=== PATIENT | female | born 1980 | race American Indian/Alaskan Native ===

== ENCOUNTER 2020-06-23 10:55 | Day surgery (SDC) | payer BC, MEDICAID ==
[2020-06-09 10:29] LABS: Hematocrit 34.2 % (30.3-42.9); Hemoglobin 11.9 gm/dl (10.1-14.3); Mean Corpuscular HGB Conc 35 % (30-34); Mean Corpuscular Volume 81 fl (79-97); Platelet Count 196 K/mm3 (140-440); Red Blood Count 4.21 M/mm3 (3.65-5.03); Red Cell Distribution Width 16.1 % (13.2-15.2)
[2020-06-09 10:52] LABS: Blood Urea Nitrogen 6 mg/dL (7-17); Calcium 9.3 mg/dL (8.4-10.2); Hemolysis Index 19
[2020-06-09 10:55] LABS: BUN/Creatinine Ratio 10
[~2020-06-23 10:55] MED LIST: ACETAMINOPHEN 500 MG TAB PO SCH; CELECOXIB 200 MG CAP PO NR; GABAPENTIN 300 MG CAP PO NR; LACTATED RINGERS 1,000 ML IV SCH; MIDAZOLAM 2 MG/2 ML INJ IV NR; SCOPOLAMINE TRANSDERMAL PATCH 72 HR TD NR; fentaNYL 100 MCG/2 ML INJ IV PRN
[2020-06-23] MEDS ORDERED: BUPIVACAINE-EPINEPHRINE/PF 0.25%-1:200,000 (30 ML) VIAL INFILTRATI ONE (11:33)
[2020-06-23] MEDS ORDERED: dexAMETHasone 4 MG/ML VIAL ONE (11:33)
[2020-06-23] MEDS ORDERED: HYDROmorphone 1 MG/1 ML INJ IV PRN (11:36)
--- NOTE | 2020-06-23 11:38 | Anesthesia Consultation ---
Anesthesia Consult and Med Hx Date of service: 06/23/20 - Airway Anesthetic Teeth Evaluation: Good, Crowns ROM Head & Neck: Adequate Mental/Hyoid Distance: Adequate Mallampati Class: Class III Intubation Access Assessment: Possibly Difficult - Pulmonary Exam CTA: Yes - Cardiac Exam Cardiac Exam: RRR - Pre-Operative Health Status ASA Pre-Surgery Classification: ASA2 Proposed Anesthetic Plan: General Nerve Block: TAP - Pulmonary Hx Smoking: No Hx Respiratory Symptoms: No (prev COVID+; asymptomatic. Recent neg test on chart.) Hx Sleep Apnea: No - Cardiovascular System Hx Hypertension: Yes Hx Heart Attack/AMI: No Hx Percutaneous Transluminal Coronary Angioplasty (PTCA): No Hx Cardia Arrhythmia: No - Central Nervous System CVA: No - Gastrointestinal Hx Gastroesophageal Reflux Disease: Yes (controlled) - Endocrine Hx Renal Disease: No Hx Cirrhosis: No Hx Liver Disease: No Hx Insulin Dependent Diabetes: No Hx Non-Insulin Dependent Diabetes: No Hx Thyroid Disease: No - Hematic Hx Anemia: Yes (no hx transfusions) - Other Systems Hx Obesity: Yes (BMI 36) - Additional Comments Anesthesia Medical History Comments: No hx anesthetic complications.
--- NOTE | 2020-06-23 11:38 | Anesthesia Day of Surgery ---
Anesthesia Day of Surgery - Day of Surgery Patient Examined: Yes Patient H&P Reviewed: Yes Patient is NPO: Yes
[2020-06-23] MEDS ORDERED: ceFAZolin/STERILE WATER 2 GM/20 ML SYRINGE IV NR (12:00)
[2020-06-23] MEDS ORDERED: propofoL 200 MG/20 ML VIAL IV ONE (12:33)
[2020-06-23] MEDS ORDERED: dexAMETHasone 20 MG/5 ML VIAL ONE (12:33)
[2020-06-23] MEDS ORDERED: LIDOCAINE MPF (2%) 20 MG/1 ML VIAL 5 ML ONE (12:33)
[2020-06-23] MEDS ORDERED: ONDANSETRON 4 MG/2 ML INJ ONE (12:33)
[2020-06-23] MEDS ORDERED: ROCURONIUM 50 MG/5 ML INJ IV ONE (12:33)
[2020-06-23] MEDS ORDERED: HYDROmorphone 1 MG/1 ML INJ ONE (12:33)
[2020-06-23] MEDS ORDERED: NEOSTIGMINE 10MG/10 ML INJ MDV ONE (15:25)
[2020-06-23] MEDS ORDERED: GLYCOPYRROLATE 0.4 MG/2 ML INJ ONE (15:25)
--- NOTE | 2020-06-23 15:33 | Post Operative Note ---
Pre-op diagnosis: incarcerated umbilical hernia Post-op diagnosis: same Findings: 1.5 cm umbilical hernia containing incarcerated preperitoneal fat Procedure: robotic assisted laparoscopic umbilical hernia repair with mesh Anesthesia: GETA, regional (NINA block) Surgeon: AMBER RODRIGUEZ (Nick Hilario, [employer]MER - assist) Estimated blood loss: minimal Pathology: none Condition: stable Disposition: PACU
--- NOTE | 2020-06-23 15:37 | Short Stay Summary ---
Short Stay Documentation Date of service: 06/23/20 - History Principal diagnosis: incarcerated umbilical hernia H&P: obtained from office - Allergies and Medications Current Medications: Allergies oxycodone Adverse Reaction (Intermediate, Verified 06/08/20 12:21) Hives Home Medications Medication Instructions Recorded Confirmed Last Taken Type Ascorbic Acid [Vitamin C] 1,000 mg PO DAILY 06/08/20 06/08/20 06/21/20 History Hydrochlorothiazide 12.5 mg PO DAILY 06/08/20 06/23/20 06/22/20 History Iron Fum,Ps/Folic/Bcomp,C No.9 1 cap PO DAILY 06/08/20 06/08/20 06/21/20 History [Integra Plus Capsule] Potassium Citrate [Potassium 15 meq PO BID 06/08/20 06/08/20 06/21/20 History Citrate ER] Tamsulosin 0.4 mg PO DAILY 06/08/20 06/08/20 06/21/20 History Active Medications Acetaminophen (Tylenol) 1,000 mg PO PREOP EVENS Stop: 06/23/20 22:00 Last Admin: 06/23/20 11:53 Dose: 1,000 mg Documented by: Cefazolin Sodium (Ancef/Sterile Water 2 Gm/20 Ml) 2 gm IV PREOP NR Stop: 06/23/20 20:00 Celecoxib (Celebrex) 200 mg PO PREOP NR Stop: 06/23/20 22:00 Last Admin: 06/23/20 11:53 Dose: 200 mg Documented by: Fentanyl (Sublimaze) 100 mcg IV ONCE PRN PRN Reason: sedation for nerve block Stop: 06/23/20 22:00 Last Admin: 06/23/20 12:22 Dose: 50 mcg Documented by: Gabapentin (Gabapentin) 600 mg PO PREOP NR Stop: 06/23/20 22:00 Last Admin: 06/23/20 11:53 Dose: 600 mg Documented by: Hydromorphone HCl (Dilaudid) 0.5 mg IV Q10MIN PRN PRN Reason: Pain , Severe (7-10) Stop: 06/23/20 22:00 Lactated Ringer's (Lactated Ringers) 1,000 mls @ 100 mls/hr IV DIRECT EVENS Stop: 06/23/20 23:59 Last Admin: 09/29/20 12:05 Dose: 100 mls/hr Documented by: Midazolam HCl (Versed) 2 mg IV PREOP NR Stop: 06/23/20 22:00 Last Admin: 06/23/20 12:22 Dose: 2 mg Documented by: Scopolamine (Transderm-Scop) 1 each TD PREOP NR Stop: 06/23/20 22:00 Last Admin: 06/23/20 11:54 Dose: 1 each Documented by: - Hospital course Hospital course: Pt observed in PACu and discharged to home in stable condition - Disposition Condition at discharge: Poor Disposition: DC-01 TO HOME OR SELFCARE Short Stay Discharge Plan Activity: other (no heavy lifting of more than 15 lbs) Diet: regular Wound: open to air, other (may remove umbilical dressing in 2 days and then shower. ) Additional Instructions: see printed dc instructions Follow up with: EDGAR SANDOVAL [Other] - 7 Days AMBER RODRIGUEZ DO [Staff Physician] - 14 Days Forms: Outpatient Surgery DC Inst. Prescriptions: Celecoxib [celeBREX] 200 mg PO BID #10 capsule Gabapentin 300 mg PO TID #15 capsule HYDROcodone/APAP 5-325 [[place] 5/325] 1 each PO Q6HR PRN #20 tablet PRN Reason: Pain , Severe (7-10)
[2020-06-23] MEDS ORDERED: LACTATED RINGERS 1,000 ML ONE (15:45)
[2020-06-23 17:13] VITALS: BP 131/79
--- NOTE | 2020-06-29 10:17 | Operative Report ---
PREOPERATIVE DIAGNOSIS: Incarcerated umbilical hernia. POSTOPERATIVE DIAGNOSIS: Incarcerated umbilical hernia. FINDINGS: 1.5 cm umbilical hernia containing incarcerated preperitoneal fat. PROCEDURE: Robotic-assisted laparoscopic umbilical hernia repair with mesh. ANESTHESIA: General endotracheal anesthesia, TAP block. SURGEON: Lali Sanford DO PUTAWAY DRIVER: LARISA Tavarez ESTIMATED BLOOD LOSS: Minimal. PATHOLOGY: None. CONDITION ON DISPOSITION: The patient is stable to PACU. HISTORY OF PRESENT ILLNESS: The patient is a 39-year-old female who presented to the surgery clinic for evaluation of an umbilical hernia. The hernia was not reducible due to pain and contained fat. The patient had no obstructive symptoms. It was recommended that the hernia be repaired. All risks, benefits and alternatives to surgery were discussed with the patient. Questions answered. Consent was obtained for a robotic-assisted umbilical hernia repair with mesh. PROCEDURE IN DETAIL: The patient was identified in the preoperative area and taken back to the operating room and placed on the operating table in supine position. After anesthesia was induced, both arms were tucked and all bony prominences were padded appropriately. The abdomen was prepped and draped in the usual sterile fashion. A timeout performed. A yuridia incision was made in the left upper quadrant through which a Veress needle was inserted. The Veress needle position was confirmed using saline drop test and the abdomen insufflated to 15 mmHg. A 5 mm right upper quadrant incision was then made through which a 5 mm Optiview trocar was placed under direct visualization. The abdomen was inspected. There was no underlying injury to any of the abdominal structures. The Veress needle path and tip was seen and the Veress needle was removed. An additional 12 mm right lateral abdominal trocar and a right lower quadrant 8 mm robotic trocar were then placed under direct visualization. The 5 mm right upper quadrant trocar was removed and replaced with an 8 mm robotic trocar under direct visualization. The robot was then docked with a monopolar scissor in arm #1 and a fenestrated bipolar in arm #2. Surgeon was then transferred to the console. The umbilical hernia was identified. The decision was made to make a preperitoneal flap in order to adequately reduce the preperitoneal fat incarcerated in the hernia. The peritoneum was scored and a preperitoneal flap was started approximately 3-4 cm from the hernia defect. This was dissected in an avascular plane on either side of the hernia sac. The hernia sac was then carefully reduced along with a small amount of incarcerated preperitoneal fat. The dissection in the preperitoneal plane was carried out further laterally in order to accommodate placement of the mesh. The hernia defect was measured at 1.5 cm. An 8 cm medium weight polypropylene mesh was chosen to repair the defect. This was cut to size and placed into the abdomen along with suture material by the surgical supply assistant. The preperitoneal flap was examined and hemostasis was carefully ensured. First, the hernia defect was closed using a running 0 V-Loc suture. The mesh was then placed over the hernia defect with adequate overlap ensured. The mesh was then sutured into 4 quadrants using a 2-0 Vicryl interrupted sutures. The preperitoneal flap was then approximated using 3-0 V-Loc running suture. There were 2 small defects seen in the peritoneum. These were closed with a [id number] 2-0 Vicryl sutures. The mesh was laying flat and was covered with peritoneum. The robot was then undocked and the surgeon scrubbed back in. The remainder of the case was performed laparoscopically. All suture and sharp materials were removed under direct visualization. The 12 mm port was removed and the fascia closed with an interrupted 0 Vicryl suture using the Yvan-Gabriel device. The abdomen was then slowly desufflated and the remainder of the trocars were removed. The skin incisions were checked for hemostasis and then approximated using 4-0 Monocryl subcuticular stitches and skin glue. A balled up 4 x 4 gauze was placed at the umbilicus and secured with a Tegaderm to help reduce the risk of seroma formation. At the end of the case, all sponge, instrument, sharp counts were correct x 2. The patient was awoken from anesthesia, extubated, and taken to PACU in stable condition. JOB# [id number] GABRIEL/KEVIN CHAN
== END 2020-06-23 10:56 | disposition home or self-care (01) ==
LOC: OR 10:55
PROVIDERS: ATTEND Surgery
DX: K42.0 Umbilical hernia with obstruction, without gangrene (principal); Z20.828 Contact with and (suspected) exposure to other viral communicable diseases; I10 Essential (primary) hypertension; K21.9 Gastro-esophageal reflux disease without esophagitis; E66.9 Obesity, unspecified; Z98.891 History of uterine scar from previous surgery; Z98.51 Tubal ligation status; Z87.442 Personal history of urinary calculi; Z98.890 Other specified postprocedural states; Z79.899 Other long term (current) drug therapy; Z88.8 Allergy status to other drugs, medicaments and biological substances
CPT/HCPCS: 36415; 49653; 64450; 80048; 81025; 84703; 85027; C1781; J0690; J1100; J1170; J2250; J2405; J2704; J2710; J3010; J7120; S2900; U0003